=== PATIENT | female | born 1970 | race Caucasian/White ===

== ENCOUNTER 2019-01-10 18:44 | Emergency (ER) | payer MEDICAID ==
[~2019-01-10] VITALS: Ht 152.4 cm; Wt 100.0 kg
[2019-01-10 19:40] VITALS: BP 149/64
== END 2019-01-10 20:08 | disposition home or self-care (01) ==
LOC: ED 18:44
DX: M54.2 Cervicalgia (principal); G89.29 Other chronic pain; I10 Essential (primary) hypertension; E03.9 Hypothyroidism, unspecified; F17.210 Nicotine dependence, cigarettes, uncomplicated

== ENCOUNTER 2019-03-16 00:05 | Emergency (ER) | payer MEDICAID ==
[~2019-03-16] VITALS: Ht 152.4 cm; Wt 95.8 kg
[2019-03-16] MEDS ORDERED: LEVEMIR100 UNIT/M SC (00:37)
[2019-03-16] MEDS ORDERED: HUMALOG100 UNIT/M SC (00:38)
[2019-03-16] MEDS ORDERED: LEVOTHYROXIN175 MC1 PO (00:39)
[2019-03-16] MEDS ORDERED: CARVEDILOL25 MG PO (00:40)
[2019-03-16] MEDS ORDERED: LOSARTAN/HCT1 TA1 PO (00:40)
[2019-03-16] MEDS ORDERED: LEXAPRO10 MG PO (00:40)
[2019-03-16] MEDS ORDERED: TEGRETOL200 MG PO (00:41)
[2019-03-16] MEDS ORDERED: RISPERIDONE0.5 MG PO (00:42)
[2019-03-16] MEDS ORDERED: ROPINIROLE1 MG PO (00:43)
[2019-03-16] MEDS ORDERED: XANAX1 MG PO (00:44)
[2019-03-16] MEDS ORDERED: ROXYBOND5 MG PO (00:45)
[2019-03-16] MEDS ORDERED: BACTRIM DS1 TAB PO (00:51)
[2019-03-16] MEDS ORDERED: BACITRACIN3.5 GM TOP (00:51)
[2019-03-16] MEDS ORDERED: KEFLEX500 MG PO (00:51)
[2019-03-16] MEDS ORDERED: DIFLUCAN100 M1 PO (01:12)
[2019-03-16 01:19] VITALS: BP 149/89
== END 2019-03-16 01:19 | disposition home or self-care (01) ==
LOC: ED 00:05
DX: L02.01 Cutaneous abscess of face (principal); N61.1 Abscess of the breast and nipple; J34.0 Abscess, furuncle and carbuncle of nose; I10 Essential (primary) hypertension; E03.9 Hypothyroidism, unspecified; E11.9 Type 2 diabetes mellitus without complications; F17.200 Nicotine dependence, unspecified, uncomplicated; Z79.4 Long term (current) use of insulin; Z86.14 Personal history of Methicillin resistant Staphylococcus aureus infection

== ENCOUNTER 2019-04-16 16:31 | Emergency (ER) | payer MEDICAID ==
[~2019-04-16] VITALS: Ht 152.4 cm; Wt 91.0 kg
[~2019-04-16 16:31] MED LIST: BACITRACIN3.5 GM TOP; BACTRIM DS1 TAB PO; CARVEDILOL25 MG PO; DIFLUCAN100 M1 PO; HUMALOG100 UNIT/M SC; KEFLEX500 MG PO; LEVEMIR100 UNIT/M SC; LEVOTHYROXIN175 MC1 PO; LEXAPRO10 MG PO; LOSARTAN/HCT1 TA1 PO; RISPERIDONE0.5 MG PO; ROPINIROLE1 MG PO; ROXYBOND5 MG PO; TEGRETOL200 MG PO; XANAX1 MG PO
[2019-04-16 17:44] LABS: IMMATURE GRANULOCYTES 0.4 % (0.0-5.0); MEAN CORPUSCULAR HGB 31.3 pG CALC (26.0-32.0); MEAN CORPUSCULAR HGB CONC 33.3 g/L CALC (32.0-36.0); NEUT# 6.34 thou/uL (2.00-7.15); RED BLOOD COUNT 4.47 mill/uL (4.20-5.60); RED CELL DISTRI WIDTH 13.2 % (11.5-15.5)
[2019-04-16 18:04] LABS: ALBUMIN 4.3 g/dL (3.2-5.0); ALKALINE PHOSPHATASE 179 u/l (38-126); ANION GAP 14 (6-22 (CALC)); BILIRUBIN, TOTAL 0.4 mg/dL (0.0-1.4); BUN 18 mg/dL (7-17); BUN/CREATININE RATIO 24 (12-20 (CALC)); CARBON DIOXIDE 31 mmol/l (22-30); CHLORIDE 97 mmol/l (95-108); CREATININE 0.8 mg/dL (0.5-1.0); ETHYL ALCOHOL 0 mg/dl (0-30); GFR > 60 ML/MIN (>=60 (CALC)); GFR FOR AFR.AMER. > 60 ML/MIN (>=60 (CALC)); LIPASE 139 u/l (23-300); POTASSIUM 3.5 mmol/l (3.5-5.1); SGOT/AST 38 u/l (14-36); SODIUM 138 mmol/l (137-146); TOTAL PROTEIN 8.6 g/dL (6.3-8.2)
[2019-04-16] MEDS ORDERED: HYDROCO/APAP1 TA9 PO (18:50)
[2019-04-16] MEDS ORDERED: CIPROFLOXACN500 MG PO (18:50)
[2019-04-16] MEDS ORDERED: DIFLUCAN150 MG PO (18:50)
[2019-04-16] MEDS ORDERED: TAMSULOSIN0.4 MG PO (18:50)
[2019-04-16 19:56] VITALS: BP 159/74
== END 2019-04-16 20:00 | disposition home or self-care (01) ==
LOC: ED 16:31
DX: N20.1 Calculus of ureter (principal); R07.89 Other chest pain; E10.9 Type 1 diabetes mellitus without complications; Z79.4 Long term (current) use of insulin; I10 Essential (primary) hypertension; Z72.0 Tobacco use

== ENCOUNTER 2019-12-15 10:41 | Emergency (ER) | payer MEDICAID ==
[~2019-12-15] VITALS: Ht 152.4 cm; Wt 75.0 kg
[~2019-12-15 10:41] MED LIST changes: +CIPROFLOXACN500 MG PO; +DIFLUCAN150 MG PO; +HYDROCO/APAP1 TA9 PO; +TAMSULOSIN0.4 MG PO
[2019-12-15] MEDS ORDERED: KLONOPIN0.5 M1 (11:48)
[2019-12-15 11:53] LABS: HEMATOCRIT 41.2 % (37.0-47.0); HEMOGLOBIN 13.3 g/dl (12.0-16.0); IMMATURE GRANULOCYTES 0.4 % (0.0-5.0); MEAN CELL VOLUME 92.4 fL CALC (80.0-100.0); MEAN CORPUSCULAR HGB 29.8 pG CALC (26.0-32.0); MEAN CORPUSCULAR HGB CONC 32.3 g/dL CAL (32.0-36.0); NEUT# 12.52 thou/uL (2.00-7.15); RED BLOOD COUNT 4.46 mill/uL (4.20-5.60); RED CELL DISTRI WIDTH 13.3 % (11.5-15.5)
[2019-12-15 11:59] LABS: GFR 52 ML/MIN (>=60 (CALC)); GFR FOR AFR.AMER. > 60 ML/MIN (>=60 (CALC))
[2019-12-15 12:15] LABS: ALBUMIN 3.9 g/dL (3.2-5.0); ALKALINE PHOSPHATASE 124 u/l (38-126); ANION GAP 13 (6-22 (CALC)); BILIRUBIN, TOTAL 0.5 mg/dL (0.0-1.4); BUN 16 mg/dL (7-17); BUN/CREATININE RATIO 16 (12-20 (CALC)); CHLORIDE 103 mmol/l (95-108); GFR 58 ML/MIN (>=60 (CALC)); GFR FOR AFR.AMER. > 60 ML/MIN (>=60 (CALC)); LIPASE 134 u/l (23-300); SGOT/AST 26 u/l (14-36); SODIUM 134 mmol/l (137-146); TOTAL PROTEIN 7.4 g/dL (6.3-8.2)
[2019-12-15 12:17] LABS: CARBON DIOXIDE 21 mmol/l (22-30)
[2019-12-15] MEDS ORDERED: K-DUR/KLOR-CON20 MEQ PO (14:04)
[2019-12-15 14:15] VITALS: BP 130/80
[2019-12-15 14:41] LABS: URINE BILIRUBIN - DIPSTICK NEGATIVE (NEGATIVE); URINE BLOOD DIPSTICK SMALL (NEGATIVE); URINE COLOR YELLOW; URINE GLUCOSE - DIPSTICK NEGATIVE (NEGATIVE); URINE KETONE NEGATIVE (NEGATIVE); URINE LEUK ESTERASE NEGATIVE (NEGATIVE); URINE PROTEIN - DIPSTICK 100 mg/dL (NEG-TRACE); URINE UROBILINOGEN - DIPSTICK 0.2 E.U./dL (0.2)
[2019-12-15 14:42] LABS: URINE NITRITE - DIPSTICK POSITIVE (Negative)
[2019-12-15 14:48] LABS: URINE BACTERIA MANY hpf; URINE SQUAMOUS EPITHELIAL CELL FEW EPI/hpf (0-FEW)
== END 2019-12-15 14:24 | disposition home or self-care (01) ==
LOC: ED 10:41
PROVIDERS: Family Medicine
DX: R10.32 Left lower quadrant pain (principal); E87.6 Hypokalemia; R82.71 Bacteriuria; I10 Essential (primary) hypertension; E11.9 Type 2 diabetes mellitus without complications; E03.9 Hypothyroidism, unspecified; F17.200 Nicotine dependence, unspecified, uncomplicated; Z79.4 Long term (current) use of insulin; Z20.828 Contact with and (suspected) exposure to other viral communicable diseases
CPT/HCPCS: Q9967